=== PATIENT | female | born 1995 | race Caucasian/White ===

== ENCOUNTER 2017-10-22 21:57 | Emergency (ER) | payer OTHER, MEDICAID ==
[2017-10-23] MEDS: HYDROCODONE/APAP (5/325) TAB PO (03:13)
== END 2017-10-23 03:42 | disposition home or self-care (01) ==
LOC: FTE 21:57
DX: K08.89 Other specified disorders of teeth and supporting structures (principal); J45.909 Unspecified asthma, uncomplicated
CPT/HCPCS: 99284; Z7502